=== PATIENT | male | born 1940 | race African-American/Black ===

== ENCOUNTER 2018-05-19 18:02 | Emergency (ER) | payer SELFPAY ==
[~2018-05-19] VITALS: Ht 165.1 cm; Wt 69.7 kg
[2018-05-19 18:10] VITALS: BP 175/93
== END 2018-05-19 21:14 | disposition home or self-care (01) ==
LOC: ER 20:20
DX: Z76.0 Encounter for issue of repeat prescription (principal); E11.9 Type 2 diabetes mellitus without complications; I10 Essential (primary) hypertension; E78.00 Pure hypercholesterolemia, unspecified
CPT/HCPCS: 99282